=== PATIENT | male | born 1980 | race African-American/Black ===

== ENCOUNTER 2020-03-26 22:28 | Emergency (ER) | payer SELFPAY ==
[~2020-03-26] VITALS: Ht 172.7 cm; Wt 78.9 kg
[2020-03-26 22:42] VITALS: BP 127/82
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
--- NOTE | 2020-03-26 22:46 | NUR ---
Nurse Note: Taken to x-ray
[2020-03-26] MEDS ORDERED: IBUPROFEN600 M1 ORAL (22:53)
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
--- NOTE | 2020-03-26 23:30 | NUR ---
ED Nurse Note: PT RETURNED FROM XRAY IN STABLE CONDITION. WILL CONTINUE TO MONITOR.
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
--- NOTE | 2020-03-26 23:55 | NUR ---
ED Nurse Note: ermd AT BEDSIDE
[2020-03-27 00:02] VITALS: BP 122/76
--- NOTE | 2020-03-27 00:02 | NUR ---
ER DISCHARGE NOTE: Patient is cleared to be discharged HOME WITH SON per NELL, pt is aox4, 99% on room air, with stable vital signs. pt was given dc and prescription instructions, pt was able to verbalize understanding, pt id band removed without complications. pt is able to ambulate with steady gait. pt took all belongings.
== END 2020-03-27 00:02 | disposition home or self-care (01) ==
LOC: EMR 22:40
DX: S16.1XXA Strain of muscle, fascia and tendon at neck level, initial encounter (principal); S39.012A Strain of muscle, fascia and tendon of lower back, initial encounter; V43.52XA Car driver injured in collision with other type car in traffic accident, initial encounter; Y92.410 Unspecified street and highway as the place of occurrence of the external cause; M50.322 Other cervical disc degeneration at C5-C6 level; M43.17 Spondylolisthesis, lumbosacral region
CPT/HCPCS: 72020; 72040; 99284